=== PATIENT | female | born 1985 | race Caucasian/White ===

== ENCOUNTER 2017-09-10 19:28 | Emergency (ER) | payer MEDICAID ==
[~2017-09-10] VITALS: Ht 144.8 cm; Wt 65.0 kg
[2017-09-10 20:07] VITALS: BP 124/68
[2017-09-10 21:08] LABS: CLARITY URINE CLEAR (CLEAR); COLOR URINE YELLOW (YELLOW); KETONES URINE TRACE (NEGATIVE); LEUKOCYTE ESTERASE URINE NEGATIVE (NEGATIVE); NITRITE URINE NEGATIVE (NEGATIVE); OCCULT BLOOD URINE NEGATIVE (NEGATIVE); PH URINE 6.5 (4.5-8.0); PROTEIN URINE NEGATIVE (NEGATIVE); SPECIFIC GRAVITY URINE 1.026 (1.005-1.030)
== END 2017-09-10 21:15 | disposition home or self-care (01) ==
LOC: ER 19:28
DX: Z11.3 Encounter for screening for infections with a predominantly sexual mode of transmission (principal)
CPT/HCPCS: 81003; 81025; 99283

== ENCOUNTER 2018-09-25 21:08 | Emergency (ER) | payer MEDICAID, OTHER ==
[~2018-09-25] VITALS: Ht 147.3 cm; Wt 66.0 kg
[2018-09-25] MEDS ORDERED: NAPROXEN 375MG TABLET PO ONE (23:00)
[2018-09-25 23:41] VITALS: BP 128/72
== END 2018-09-25 23:43 | disposition home or self-care (01) ==
LOC: ER 21:08
DX: M25.562 Pain in left knee (principal); M25.561 Pain in right knee; M79.645 Pain in left finger(s); M54.5 Low back pain; Z98.890 Other specified postprocedural states
CPT/HCPCS: 73562; 81025; 99283

== ENCOUNTER 2022-03-03 20:02 | Emergency (ER) | payer OTHER ==
[~2022-03-03] VITALS: Ht 160 cm; Wt 64.0 kg
[2022-03-03 20:12] VITALS: BP 130/88
[2022-03-04] MEDS ORDERED: HYDROCODONE/ACETAMINOPHEN 10/325MG TABLET PO ONE (01:15)
[2022-03-04] MEDS ORDERED: IBUPROFEN 600MG TABLET PO ONE (03:00)
[2022-03-04] MEDS ORDERED: IBUP-2029 MT (03:31)
[2022-03-04] MEDS ORDERED: LIDO700A30 TP (03:31)
[2022-03-04] MEDS ORDERED: HYDROCODONE/ACETAMINOPHEN 5/325MG TABLET PO ONE (03:45)
[2022-03-05] MEDS ORDERED: LIDO700A30 TP (11:38)
[2022-03-05] MEDS ORDERED: IBUP-2029 MT (11:38)
== END 2022-03-04 03:46 | disposition home or self-care (01) ==
LOC: ER 20:02
DX: S42.001A Fracture of unspecified part of right clavicle, initial encounter for closed fracture (principal); M25.511 Pain in right shoulder; Z98.890 Other specified postprocedural states; V43.62XA Car passenger injured in collision with other type car in traffic accident, initial encounter; W22.12XA Striking against or struck by front passenger side automobile airbag, initial encounter; Y93.89 Activity, other specified; Y92.488 Other paved roadways as the place of occurrence of the external cause
CPT/HCPCS: 71045; 73000; 73030; 81025; 99284; L3670